=== PATIENT | male | born 1945 | race Caucasian/White ===

== ENCOUNTER 2021-02-11 13:45 | Inpatient (IN) | payer MEDICARE ==
[2021-02-15 13:09] VITALS: BMI 21.7
[2021-02-16] MEDS ORDERED: Tranexamic Acid 1,000 MG/10 ML VIAL ONE (09:10)
[2021-02-16] MEDS ORDERED: Vancomycin 1 GM/200 ML BAG ONE (09:10)
[2021-02-16] MEDS ORDERED: Sodium Chloride 0.9% 100 ML ONE (09:10)
[2021-02-16] MEDS ORDERED: Fentanyl 100 MCG/2 ML VIAL ONE ×2 (09:44→11:02)
[2021-02-16] MEDS ORDERED: Midazolam HCl 2 mg/2 ml Vial ONE (09:44)
[2021-02-16] MEDS ORDERED: diphenhydrAMINE 50 MG/ML VIAL IVP PRN (10:15)
[2021-02-16] MEDS ORDERED: HYDROcodone/Acetaminophen 5/325 mg Tablet PO PRN ×2 (10:15)
[2021-02-16] MEDS ORDERED: traMADol HCl 50 MG TAB PO PRN ×2 (10:15)
[2021-02-16] MEDS ORDERED: Naloxone HCl 0.4 mg/ml Vial IVP PRN (10:15)
[2021-02-16] MEDS ORDERED: Bupivacaine 0.25% 10 ML VIAL EPIDURAL PRN (10:15)
[2021-02-16] MEDS ORDERED: Hydrocerin (Eucerin) Cream 120 gm Jar TOP PRN (10:15)
[2021-02-16] MEDS ORDERED: Zolpidem Tartrate 5 MG TAB PO PRN ×2 (10:15→10:54)
[2021-02-16] MEDS ORDERED: Promethazine HCl 25 MG/ML VIAL IM PRN ×2 (10:15→10:54)
[2021-02-16] MEDS ORDERED: Naloxone HCl 0.4 mg/ml Vial IV PRN (10:15)
[2021-02-16] MEDS ORDERED: Ondansetron PF 4 MG/2 ML Vial IVP PRN ×2 (10:15→10:54)
[2021-02-16] MEDS ORDERED: diphenhydrAMINE 50 MG/ML VIAL IM PRN (10:15)
[2021-02-16] MEDS ORDERED: diphenhydrAMINE 25 MG CAP PO PRN ×2 (10:15→10:54)
[2021-02-16] MEDS ORDERED: Promethazine HCl 25 MG SUPP PR PRN (10:15)
[2021-02-16] MEDS ORDERED: Lidocaine 1.5% w/Epi 1:200K 30 ML VIAL (Epid Use) ONE (10:49)
[2021-02-16] MEDS ORDERED: Dexamethasone 20 MG/5 ML VIAL ONE (10:49)
[2021-02-16] MEDS ORDERED: Ondansetron PF 4 MG/2 ML Vial ONE (10:49)
[2021-02-16] MEDS ORDERED: Ketorolac Tromethamine 30 MG/ML VIAL ONE (10:49)
[2021-02-16] MEDS ORDERED: PROPOFOL 200 MG/20 ML VIAL ONE (10:49)
[2021-02-16] MEDS ORDERED: Rocuronium Bromide 10 MG/ML (10ML VIAL) ONE (10:49)
[2021-02-16] MEDS ORDERED: Glycopyrrolate 0.2 MG/ML 5 ML SYRINGE ONE (10:49)
[2021-02-16] MEDS ORDERED: PHENYLEPHRINE-NS 100 MCG/ML 10 ML SYRINGE ONE (10:49)
[2021-02-16] MEDS ORDERED: Lidocaine 1% PF 5 ML VIAL ONE (10:49)
[2021-02-16] MEDS ORDERED: Acetaminophen 325 MG TAB PO PRN (10:54)
[2021-02-16] MEDS ORDERED: HYDROcodone/Acetaminophen 10/325 mg Tablet PO PRN ×2 (10:54)
[2021-02-16] MEDS ORDERED: Fentanyl 100 MCG/2 ML VIAL SLOW IVP PRN (10:54)
[2021-02-16] MEDS ORDERED: Phenylephrine 10 MG/ML VIAL ONE (11:02)
[2021-02-16] MEDS ORDERED: Bupivacaine 0.25% HCL 30 ML VIAL ONE (11:28)
[2021-02-16] MEDS: Sodium Chloride 0.9% 1,000 ML IV SCH ×2 (17:07→21:23)
[2021-02-16] MEDS: Ketorolac Tromethamine 30 MG/ML VIAL IVP SCH ×3 (17:07→23:34)
[2021-02-16] MEDS: CEFAZOLIN 2 GM in Premix Bag 1 BAG IVPB SCH (18:25)
[2021-02-16] MEDS: Aspirin 81 mg Enteric Coated Tablet PO SCH (21:22)
[2021-02-16] MEDS: Gabapentin 100 MG CAP PO SCH (21:22)
[2021-02-16] MEDS: Atorvastatin Calcium 40 MG TAB PO SCH (21:22)
[2021-02-17] MEDS: CEFAZOLIN 2 GM in Premix Bag 1 BAG IVPB SCH (01:37)
[2021-02-17] MEDS: Ketorolac Tromethamine 30 MG/ML VIAL IVP SCH ×3 (06:00→17:08)
[2021-02-17] MEDS: Fentanyl 5 mcg/Bup 0.075% Cadd 100 ML EPIDURAL SCH ×2 (06:01→22:51)
[2021-02-17 06:03] LABS: Hemoglobin 11.5 g/dL (14.0-18.0); Mean Corpuscular HGB CONC 34.9 g/dL (32.0-36.0); Mean Corpuscular Hemoglobin 32.2 pg (27.0-31.0); Mean Corpuscular Volume 92.3 fL (78.0-98.0); Mean Platelet Volume 7.4 fL (7.4-10.4); Platelet Count 188 thou/uL (130-400); RBC Distribution Width 11.2 % (11.5-14.5); Red Blood Cell (RBC) Count 3.56 mill/uL (4.70-6.10); White Blood Cell (WBC) Count 12.4 thou/uL (4.8-10.8)
[2021-02-17] MEDS: Sodium Chloride 0.9% 1,000 ML IV SCH ×2 (07:55→17:09)
[2021-02-17] MEDS ORDERED: SELENIUM 100 MCG PO SCH (09:00)
[2021-02-17] MEDS: Aspirin 81 mg Enteric Coated Tablet PO SCH ×2 (09:11→21:00)
[2021-02-17] MEDS: Multivitamin W/ Minerals 1 TAB PO SCH (09:11)
[2021-02-17] MEDS: Cholecalciferol 1,000 UNITS (25 MCG) TAB PO SCH (09:11)
[2021-02-17] MEDS: Ferrous Gluconate 324 MG TAB PO SCH ×2 (09:11→17:08)
[2021-02-17] MEDS: Senokot S 8.6-50 MG TAB PO SCH ×2 (09:11→20:59)
[2021-02-17] MEDS: Gabapentin 100 MG CAP PO SCH (21:00)
[2021-02-17] MEDS: Atorvastatin Calcium 40 MG TAB PO SCH (21:00)
[2021-02-18] MEDS: Ketorolac Tromethamine 30 MG/ML VIAL IVP SCH ×2 (00:17→06:01)
[2021-02-18] MEDS: Sodium Chloride 0.9% 1,000 ML IV SCH ×2 (05:31→12:32)
[2021-02-18 07:56] VITALS: TEMP 97.9
[2021-02-18] MEDS: Senokot S 8.6-50 MG TAB PO SCH (08:39)
[2021-02-18] MEDS: Aspirin 81 mg Enteric Coated Tablet PO SCH (08:39)
[2021-02-18] MEDS: Multivitamin W/ Minerals 1 TAB PO SCH (08:39)
[2021-02-18] MEDS: Cholecalciferol 1,000 UNITS (25 MCG) TAB PO SCH (08:39)
[2021-02-18] MEDS: Ferrous Gluconate 324 MG TAB PO SCH (08:43)
[2021-02-18] MEDS ORDERED: Polyethylene Glycol 3350 17 GM Packet PO SCH (09:00)
[2021-02-18] MEDS ORDERED: Bisacodyl 10 MG SUPP PR SCH (15:30)
[2021-02-18 15:51] VITALS: BP 139/74
== END 2021-02-18 18:03 | disposition home or self-care (01) | DRG 470 ==
LOC: SURG A 02-16 08:08 → EDSTATUS 02-16 13:45 → SURG B 02-16 16:05
PROVIDERS: ADMIT Orthopaedic Surgery; ATTEND Orthopaedic Surgery
PROC: 0SR90JZ Replacement of Right Hip Joint with Synthetic Substitute, Open Approach (ICD-10-PCS; principal; 2021-02-16)
DX: M16.11 Unilateral primary osteoarthritis, right hip (principal); Z20.822 Contact with and (suspected) exposure to COVID-19; E78.00 Pure hypercholesterolemia, unspecified; I10 Essential (primary) hypertension; E78.5 Hyperlipidemia, unspecified; Z86.73 Personal history of transient ischemic attack (TIA), and cerebral infarction without residual deficits; Z87.891 Personal history of nicotine dependence; Z79.899 Other long term (current) drug therapy
CPT/HCPCS: 36415; 85027; J0690; J1100; J1885; J2001; J2250; J2370; J2405; J2704; J3010; J3370; J3490; S0020